=== PATIENT | male | born 1955 | race Caucasian/White ===

== ENCOUNTER 2017-01-01 16:32 | Emergency (ER) | payer SELFPAY ==
[~2017-01-01] VITALS: Ht 177.8 cm; Wt 70.0 kg
[2017-01-01 17:00] VITALS: BP 129/64
== END 2017-01-01 18:24 | disposition home or self-care (01) ==
LOC: ED 16:59
DX: L03.116 Cellulitis of left lower limb (principal); L03.115 Cellulitis of right lower limb; F22 Delusional disorders; F43.10 Post-traumatic stress disorder, unspecified; Z59.0 Homelessness
CPT/HCPCS: 99283